=== PATIENT | female | born 1985 | race Caucasian/White ===

== ENCOUNTER 2017-06-07 17:33 | Emergency (ER) | payer SELFPAY ==
--- NOTE | 2017-06-07 18:42 | UC ---
Bite Injury/Animal HPI - HPI Summary HPI Summary: 31F presents with tick on left arm. 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 She did not try to take it out. no history of lyme. wants tick check for body. - History of Current Complaint Chief Complaint: [place] Stated Complaint: TICK ON ARM Time Seen by Provider: 06/07/17 18:17 Hx Last Menstrual Period: 05/09/17 - Allergies/Home Medications Allergies/Adverse Reactions: Allergies Allergy/AdvReac Type Severity Reaction Status Date / Time Penicillins Allergy Hives Verified 06/07/17 18:02 PMH/Surg Hx/FS Hx/Imm Hx Endocrine History: Other Other Endocrine History: no DM Cardiovascular History: Other Other Cardiovascular History: no HTN - Surgical History Surgical History: Yes Surgery Procedure, Year, and Place: ear tubes - Family History Known Family History: Positive: Diabetes - Social History Alcohol Use: Rare Substance Use Type: None Smoking Status (MU): Former Smoker Type: Cigarettes Length of Time of Smoking/Using Tobacco: quit smoking 5 years ago - Immunization History Most Recent Influenza Vaccination: none Review of Systems Skin: Other - tick left arm All Other Systems Reviewed And Are Negative: Yes Physical Exam Triage Information Reviewed: Yes Appearance: Well-Appearing Vital Signs: Initial Vital Signs Temp 98.2 F 06/07/17 17:58 Pulse 102 06/07/17 17:58 Resp 16 06/07/17 17:58 BP 131/49 06/07/17 17:58 Pulse Ox 99 06/07/17 17:58 Vital Signs Reviewed: Yes Eyes: Positive: Conjunctiva Clear Respiratory: Positive: Lungs clear, Normal breath sounds Cardiovascular: Positive: RRR Musculoskeletal Exam: Normal Neurological Exam: Normal Psychological Exam: Normal Skin: Positive: Other - tick in left arm Bite Injury Course/Dx - Course Course Of Treatment: 31F presents with tick on left arm. 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 She did not try to take it out. no history of lyme. wants tick check for body. removed tick with tweezers was not embedded yet so does not need doxy at this time. no other ticks seen on exam. patient understands and agrees with plan. - Differential Dx/Diagnosis Differential Diagnosis/HQI/PQRI: Other - ticks, lyme Provider Diagnoses: left arm tick Discharge - Discharge Plan Condition: Good Disposition: HOME Patient Education Materials: Tick Bite (ED) Referrals: Donis Amador MD [Primary Care Provider] - Additional Instructions: Return to urgent care if develop any new or worsening symptoms
[2017-06-07 18:43] VITALS: BP 131/49
== END 2017-06-07 18:58 | disposition home or self-care (01) ==
LOC: UCEAST 17:33
DX: S40.862A Insect bite (nonvenomous) of left upper arm, initial encounter (principal); W57.XXXA Bitten or stung by nonvenomous insect and other nonvenomous arthropods, initial encounter; Y92.9 Unspecified place or not applicable
CPT/HCPCS: 99211; G0463

== ENCOUNTER 2019-07-24 00:21 | Emergency (ER) | payer OTHER ==
[2019-07-24] MEDS ORDERED: oxyCODONE TAB* 5 MG TAB PO ONE (01:12)
--- NOTE | 2019-07-24 01:13 | ED ---
Back Pain - HPI Summary HPI Summary: Patient complains of mid back pain status post mechanical fall while getting out of a hot tub. Patient ambulatory, denies loss of sensation or function in bilateral lower extremities, urinary retention, loss of bowel control. Pain rated 10/10. Denies any other pain, injury or symptoms. - History of Current Complaint Chief Complaint: EDBackInjuryPain Stated Complaint: BACK INJURY PER PT Time Seen by Provider: 07/24/19 01:07 Hx Obtained From: Patient, Family/Personnel Arbitrator Hx Last Menstrual Period: 05/09/17 Onset/Duration: Started Minutes Ago Timing: Constant Back Pain Location: Is Discrete @ Severity Initially: Severe Severity Currently: Severe Pain Intensity: 10 Pain Scale Used: 0-10 Numeric Character: Dull, Aching, Throbbing Aggravating Symptom(s): Movement Alleviating Symptom(s): Position Associated Signs And Symptoms: Positive: Negative - Allergies/Home Medications Allergies/Adverse Reactions: Allergies Allergy/AdvReac Type Severity Reaction Status Date / Time Penicillins Allergy Hives Verified 07/24/19 00:25 PMH/Surg Hx/FS Hx/Imm Hx Endocrine/Hematology History: Denies: Hx Anticoagulant Therapy Cardiovascular History: Denies: Hx Pacemaker/ICD History: Denies: Hx Dialysis Sensory History: Denies: Hx Eye Prosthesis Opthamlomology History: Denies: Hx Legally Blind EENT History: Denies: Hx Deafness Neurological History: Denies: Hx Dementia - Surgical History Surgery Procedure, Year, and Place: ear tubes Infectious Disease History: No Infectious Disease History: Denies: History Other Infectious Disease, Traveled Outside the [place] in Last 30 Days - Family History Known Family History: Positive: Diabetes - Social History Alcohol Use: Rare Hx Substance Use: No Substance Use Type: Reports: None Hx Tobacco Use: Yes Smoking Status (MU): Former Smoker Type: Cigarettes Length of Time of Smoking/Using Tobacco: quit smoking 5 years ago Review of Systems Constitutional: Negative Eyes: Negative ENT: Negative Cardiovascular: Negative Respiratory: Negative Gastrointestinal: Negative Genitourinary: Negative Musculoskeletal: Other Skin: Negative Neurological: Negative Psychological: Normal All Other Systems Reviewed And Are Negative: Yes Physical Exam - Summary Physical Exam Summary: No ecchymosis, erythema, deformity, swelling, mass noted to back. Bony point tenderness along thoracic spine. Mild paraspinal tenderness of thoracic spine. PMS intact distally bilateral lower extremities. Triage Information Reviewed: Yes Vital Signs On Initial Exam: Initial Vitals Temp Pulse Resp BP Pulse Ox 98 F 128 18 139/97 99 07/24/19 00:22 07/24/19 00:22 07/24/19 00:22 07/24/19 00:22 07/24/19 00:22 Vital Signs Reviewed: Yes Appearance: Positive: Well-Appearing Skin: Positive: Warm Head/Face: Positive: Normal Head/Face Inspection Eyes: Positive: Normal Dental: Negative: Dental Fracture @, Bleeding Neck: Positive: Supple Respiratory/Lung Sounds: Positive: Clear to Auscultation Cardiovascular: Positive: Normal Abdomen Description: Positive: Nontender Musculoskeletal: Positive: Normal Neurological: Positive: Normal Psychiatric: Positive: Normal AVPU Assessment: Alert - [place] Coma Scale Best Eye Response: 4 - Spontaneous Best Motor Response: 6 - Obeys Commands Best Verbal Response: 5 - Oriented Coma Scale Total: 15 Procedures - Sedation Patient Received Moderate/Deep Sedation with Procedure: No Diagnostics - Vital Signs Vital Signs Temp Pulse Resp BP Pulse Ox 07/24/19 00:22 98 F 128 18 139/97 99 - Laboratory Lab Statement: Any lab studies that have been ordered have been reviewed, and results considered in the medical decision making process. Back Pain Course/Dx - Course Course Of Treatment: Patient complains of mid back pain status post mechanical fall while getting out of a hot tub. Patient ambulatory, denies loss of sensation or function in bilateral lower extremities, urinary retention, loss of bowel control. Pain rated 10/10. Denies any other pain, injury or symptoms. Vital signs within normal limits. X-ray thoracic spine negative. Patient pain somewhat improved with oxycodone 5 mg. - Diagnoses Provider Diagnoses: Fall, Acute back pain Discharge ED - Sign-Out/Discharge Documenting (check all that apply): Patient Departure - Discharge Plan Condition: Stable Disposition: HOME Patient Education Materials: Back Pain (ED) Referrals: No Primary Care Phys,NOPCP [Primary Care Provider] - Additional Instructions: Alternate ibuprofen 600 mg with Tylenol 650 mg every 3 hours as needed for pain. Return to the ED for any new or worsening symptoms. - Billing Disposition and Condition Condition: STABLE Disposition: Home
[2019-07-24] MEDS ORDERED: Ibuprofen TAB* 600 MG PO ONE (02:22)
[2019-07-24 03:13] VITALS: BP 125/85
== END 2019-07-24 03:00 | disposition home or self-care (01) ==
LOC: ED 00:21
DX: M54.9 Dorsalgia, unspecified (principal); Z87.891 Personal history of nicotine dependence; W19.XXXA Unspecified fall, initial encounter; Y92.9 Unspecified place or not applicable; Z88.0 Allergy status to penicillin; M51.34 Other intervertebral disc degeneration, thoracic region
CPT/HCPCS: 72070; 99282; A9270-GY